=== PATIENT | female | born 1975 | race Two or more races ===

== ENCOUNTER → 2017-10-10 | Outpatient (CLI) | payer OTHER | END | disposition home or self-care (01) | LOC: MAMO-SONO 11:15 | DX: Z12.31 Encounter for screening mammogram for malignant neoplasm of breast (principal); N60.11 Diffuse cystic mastopathy of right breast; N60.12 Diffuse cystic mastopathy of left breast ==

== ENCOUNTER 2018-04-15 14:36 | Outpatient (CLI) | payer OTHER | END 2018-04-15 15:00 | disposition home or self-care (01) | LOC: RAD 501 14:36 | DX: M54.5 Low back pain (principal) ==

== ENCOUNTER 2018-11-26 10:32 | Outpatient (CLI) | payer OTHER | END 2018-11-26 10:35 | disposition home or self-care (01) | LOC: MAMO-SONO 10:32 | DX: N60.11 Diffuse cystic mastopathy of right breast (principal); N60.12 Diffuse cystic mastopathy of left breast; Z12.31 Encounter for screening mammogram for malignant neoplasm of breast ==

== ENCOUNTER 2019-11-25 11:52 | Outpatient (CLI) | payer OTHER | END 2019-11-25 12:04 | disposition home or self-care (01) | LOC: MAMO-SONO 11:52 | DX: Z12.31 Encounter for screening mammogram for malignant neoplasm of breast (principal); N60.11 Diffuse cystic mastopathy of right breast; N60.12 Diffuse cystic mastopathy of left breast ==

== ENCOUNTER 2020-12-07 11:06 | Outpatient (CLI) | payer OTHER | END 2020-12-07 11:21 | disposition home or self-care (01) | LOC: MAMO-SONO 11:06 | PROVIDERS: ATTEND Specialist | DX: N60.11 Diffuse cystic mastopathy of right breast (principal); N60.12 Diffuse cystic mastopathy of left breast ==

== ENCOUNTER → 2021-05-19 11:21 | Outpatient (CLI) | payer OTHER | END | disposition home or self-care (01) | LOC: MAMO-SONO 05-17 13:15 | PROVIDERS: ATTEND Physical Medicine & Rehabilitation | DX: N60.19 Diffuse cystic mastopathy of unspecified breast (principal) ==

== ENCOUNTER 2021-07-12 12:28 | Outpatient (CLI) | payer OTHER | END 2021-07-12 12:37 | disposition home or self-care (01) | LOC: RAD 12:28 | PROVIDERS: ATTEND Internal Medicine | DX: M25.561 Pain in right knee (principal) ==

== ENCOUNTER 2021-07-15 06:58 | Day surgery (SDC) | payer OTHER | END 2021-07-15 11:45 | disposition home or self-care (01) | LOC: CIR.AMB 06:58 | PROVIDERS: ATTEND Surgery | DX: D18.09 Hemangioma of other sites (principal); Z20.822 Contact with and (suspected) exposure to COVID-19 ==

== ENCOUNTER 2021-08-11 09:17 | Outpatient (CLI) | payer OTHER | END 2021-08-11 09:23 | disposition home or self-care (01) | LOC: NUCLEAR 09:17 | PROVIDERS: ATTEND Surgery | DX: I82.403 Acute embolism and thrombosis of unspecified deep veins of lower extremity, bilateral (principal); I73.9 Peripheral vascular disease, unspecified; M81.0 Age-related osteoporosis without current pathological fracture; M85.80 Other specified disorders of bone density and structure, unspecified site ==

== ENCOUNTER 2021-08-11 10:40 | Outpatient (CLI) | payer OTHER | END 2021-08-11 10:57 | disposition home or self-care (01) | LOC: MRI 10:40 | PROVIDERS: ATTEND Surgery | DX: M51.37 Other intervertebral disc degeneration, lumbosacral region (principal); M54.31 Sciatica, right side | CPT/HCPCS: 72148 ==

== ENCOUNTER → 2021-08-12 | Outpatient (CLI) | payer OTHER | END | disposition home or self-care (01) | LOC: NUCLEAR 10:19 | PROVIDERS: ATTEND Internal Medicine | DX: I73.9 Peripheral vascular disease, unspecified (principal); I82.402 Acute embolism and thrombosis of unspecified deep veins of left lower extremity ==

== ENCOUNTER 2022-01-18 08:35 | Outpatient (CLI) | payer OTHER | END 2022-01-18 08:47 | disposition home or self-care (01) | LOC: MAMO-SONO 08:35 | PROVIDERS: ATTEND Specialist | DX: R10.2 Pelvic and perineal pain (principal); N60.11 Diffuse cystic mastopathy of right breast; N60.12 Diffuse cystic mastopathy of left breast ==

== ENCOUNTER 2022-01-20 11:27 | Outpatient (CLI) | payer OTHER | END 2022-01-20 11:53 | disposition home or self-care (01) | LOC: SONOGRAMA 11:27 | PROVIDERS: ATTEND Surgery | DX: N60.11 Diffuse cystic mastopathy of right breast (principal); N60.12 Diffuse cystic mastopathy of left breast ==

== ENCOUNTER 2023-01-30 08:47 | Outpatient (CLI) | payer OTHER | END 2023-01-30 09:06 | disposition home or self-care (01) | LOC: MAMO-SONO 08:47 | PROVIDERS: ATTEND Specialist | DX: N60.11 Diffuse cystic mastopathy of right breast (principal); N60.12 Diffuse cystic mastopathy of left breast; R10.2 Pelvic and perineal pain; J32.8 Other chronic sinusitis ==

== ENCOUNTER 2023-10-11 08:58 | Outpatient (CLI) | payer OTHER | END 2023-10-11 08:59 | disposition home or self-care (01) | LOC: NUCLEAR 08:58 | PROVIDERS: ATTEND Physical Medicine & Rehabilitation | DX: I82.90 Acute embolism and thrombosis of unspecified vein (principal) ==

== ENCOUNTER 2024-12-12 07:42 | Outpatient (CLI) | payer OTHER | END 2024-12-12 07:43 | disposition home or self-care (01) | LOC: NUCLEAR 07:42 | PROVIDERS: ATTEND Dermatology | DX: L97.911 Non-pressure chronic ulcer of unspecified part of right lower leg limited to breakdown of skin (principal) ==

== ENCOUNTER 2025-04-15 12:33 | Outpatient (CLI) | payer OTHER | END 2025-04-15 12:50 | disposition home or self-care (01) | LOC: MAMO-SONO 12:33 | PROVIDERS: ATTEND Surgery | DX: N60.11 Diffuse cystic mastopathy of right breast (principal); N60.12 Diffuse cystic mastopathy of left breast; R10.2 Pelvic and perineal pain ==

== ENCOUNTER 2025-04-28 09:23 | Outpatient (CLI) | payer OTHER | END 2025-04-28 09:36 | disposition home or self-care (01) | LOC: SONOGRAMA 09:23 | PROVIDERS: ATTEND Specialist | DX: D25.9 Leiomyoma of uterus, unspecified (principal); R10.13 Epigastric pain | CPT/HCPCS: 72197 ==